=== PATIENT | female | born 1980 | race American Indian/Alaskan Native ===

== ENCOUNTER 2017-01-05 22:40 | Emergency (ER) | payer OTHER ==
[2017-01-05 22:40] VITALS: BMI 30.3
[2017-01-05 23:32] LABS: RBC URINE 1 /hpf (0-3); URINE BACTERIA RARE (<OCC); URINE BILIRUBIN NEGATIVE (NEGATIVE); URINE BLOOD NEGATIVE (NEGATIVE); URINE COLOR Straw (YELLOW); URINE GLUCOSE (UA) NORMAL (Normal); URINE KETONE NEGATIVE (NEGATIVE); URINE LEUKOCYTE ESTERASE NEG Leu/uL (Negative); URINE PROTEIN NEGATIVE (NEGATIVE); URINE UROBILINOGEN NORMAL mg/dL (0.2-1.0); WBC URINE 2 /hpf (0-5)
[2017-01-05] MEDS ORDERED: Sodium Chloride 0.9% 1,000 ML IV ONE (23:35)
[2017-01-06 00:09] LABS: VENOUS BLOOD GAS BASE EXCESS 1.5 mmol/L (0.0-2.0); VENOUS BLOOD GAS PCO2 49 mmHg (40-60); VENOUS BLOOD PH 7.36 (7.32-7.43)
[2017-01-06 00:34] LABS: BASO % 0.3 % (0.0-2.0); EOS % 0.2 % (0.0-4.0); HEMATOCRIT 36.7 % (34.0-47.0); LYMPH # 0.5 K/uL (1.0-4.3); LYMPH % 5.3 % (20.0-40.0); MEAN CELL VOLUME 81.5 fL (81.0-99.0); MEAN CORPUSCULAR HEMOGLOBIN 25.1 pg (27.0-31.0); MEAN CORPUSCULAR HGB CONC 30.8 g/dL (33.0-37.0); MEAN PLATELET VOLUME 8.3 fL (7.2-11.7); MONO # 0.3 K/uL (0.0-0.8); MONO % 3.1 % (0.0-10.0); PLATELET COUNT 354 K/uL (130-400); RED CELL DISTRIBUTION WIDTH 14.2 % (11.5-14.5); WHITE BLOOD COUNT 9.1 K/uL (4.8-10.8)
[2017-01-06 00:47] LABS: ALB/GLOB RATIO 1.2 (1.0-2.1); ALKALINE PHOSPHATASE 71 U/L (38-126); ALT/SGPT 23 U/L (9-52); AST/SGOT 25 U/L (14-36); BILIRUBIN,TOTAL 0.5 mg/dL (0.2-1.3); BLOOD UREA NITROGEN 13 mg/dL (7-17); CALCIUM 9.1 mg/dl (8.6-10.4); CARBON DIOXIDE 24 mmol/L (22-30); CHLORIDE 101 mmol/L (98-107); GFR AFRICAN-AMERICAN > 60; GLUCOSE,RANDOM 94 mg/dL (65-105); POTASSIUM 3.9 mmol/L (3.6-5.2); SODIUM 137 mmol/L (132-148); TOTAL PROTEIN 7.1 g/dL (6.3-8.3)
--- NOTE | 2017-01-06 01:06 | C.PDOC ---
History Of Present Illness <Sachi Bentley - Last Filed: 01/06/17 01:05> <Neema Zelaya - Last Filed: 01/09/17 04:30> 36 year old female presents to the ED with complaints of sudden onset of chills and tightness to the sternal/ epigastric region of her chest. Patient is an employee at [employer] and notes pain began at about 10pm tonight. She also janet mild myalgia but denies nausea, vomiting, headache, neck stiffness, cough, or shortness of breath. (Neema Zelaya) <Sachi Bentley - Last Filed: 01/06/17 01:05> History Per: Patient History/Exam Limitations: no limitations Onset/Duration Of Symptoms: Hrs Current Symptoms Are (Timing): Still Present Location Of Pain/Discomfort: Epigastric (epigastric/sternal area of chest ) Radiation Of Pain To:: None Quality Of Discomfort: Other (tightness ) Associated Symptoms: Chills. denies: Fever, Nausea, Vomiting, Diarrhea Recent travel outside of the [place]: No Abnormal Vaginal Bleeding: No <Neema Zelaya - Last Filed: 01/09/17 04:30> Time Seen by Provider: 01/05/17 23:30 Chief Complaint (Nursing): Fever Past Medical History - Medical History PMH: Denies: Chronic Kidney Disease - Social History Hx Tobacco Use: No Hx Alcohol Use: No Hx Substance Use: No - Immunization History Hx Tetanus Toxoid Vaccination: No Hx Influenza Vaccination: No Hx Pneumococcal Vaccination: No <Sachi Bentley - Last Filed: 01/06/17 01:05> Reviewed: Historical Data, Nursing Documentation, Vital Signs Family History: States: Unknown Family Hx <Neema Zelaya - Last Filed: 01/09/17 04:30> Vital Signs: Last Vital Signs Temp 98.9 F 01/06/17 01:21 Pulse 108 H 01/06/17 01:21 Resp 18 01/06/17 01:21 BP 111/71 01/06/17 01:21 Pulse Ox 99 01/06/17 01:21 Review Of Systems Constitutional: Positive for: Fever, Chills, Other (mild myalgia ) Cardiovascular: Negative for: Chest Pain, Palpitations Respiratory: Negative for: Cough, Shortness of Breath Gastrointestinal: Negative for: Nausea, Vomiting, Abdominal Pain, Diarrhea Neurological: Negative for: Headache, Dizziness <Neema Zelaya - Last Filed: 01/09/17 04:30> Physical Exam - Physical Exam Appears: Well, Non-toxic, No Acute Distress Skin: Warm, Dry Head: Atraumatic Eye(s): bilateral: Normal Inspection, PERRL, EOMI Ear(s): Bilateral: Normal Oral Mucosa: Moist Throat: Normal, No Erythema, No Exudate Neck: No Midline Cervical Tenderness, No Paracervical Tenderness, Supple Chest: Symmetrical, No Deformity, Tenderness (mild distal sternal reproducible tenderness ) Cardiovascular: Other (patient is tachycardic ) Respiratory: Normal Breath Sounds, No Rales, No Rhonchi, No Wheezing Gastrointestinal/Abdominal: Soft, No Tenderness, No Distention, No Guarding, No Rebound Neurological/Psych: Oriented x3, Normal Speech, Normal Cognition <Neema Zelaya - Last Filed: 01/09/17 04:30> ED Course And Treatment - Laboratory Results Result Diagrams: 01/06/17 00:21 01/06/17 00:21 O2 Sat by Pulse Oximetry: 98 <Sachi Bentley - Last Filed: 01/06/17 01:05> - Laboratory Results Result Diagrams: 01/06/17 00:21 01/06/17 00:21 Urine POC: Negative ECG: Interpreted By Me ECG Rhythm: Sinus Tachycardia Rate From EC Pulse Ox Interpretation: Normal - Radiology CXR: Interpreted by Me, Viewed By Me CXR Interpretation: Yes: No Acute Disease. No: Infiltrates Progress Note: CXR and labs were ordered. Patient was given Motrin and IV fluids. <Neema Zelaya - Last Filed: 01/09/17 04:30> Medical Decision Making <Sachi Bentley - Last Filed: 01/06/17 01:05> <Neema Zelaya - Last Filed: 01/09/17 04:30> Medical Decision Making: pt appears well, with only mild 'soreness' to distal sternal area. abdomen non tender. will d/c home with pmd f/u tomorrow. (Neema Zelaya) Disposition <Sachi Bentley - Last Filed: 01/06/17 01:05> Counseled Patient/Family Regarding: Diagnosis, Need For Followup - Disposition Disposition Time: 01:54 <Neema Zelaya - Last Filed: 01/09/17 04:30> - Disposition Referrals: Romy Nguyen MD [Staff Provider] - Disposition: HOME/ ROUTINE Condition: STABLE Additional Instructions: Follow up with Dr Nguyen today/ Stay well hydrated. Tylenol or Motrin for pain. Return to ER for any worsening symptoms. Forms: General Discharge Instructions, [facility] (G[place]ian), Work Excuse - Clinical Impression Clinical Impression: Fever, Influenza-like illness <Sachi Bentley - Last Filed: 01/06/17 01:05> - Scribe Statement The provider has reviewed the documentation as recorded by the Scribe <Neema Zelaya - Last Filed: 01/09/17 04:30> - Scribe Statement Peyton Nieto All medical record entries made by the Scribe were at my direction and personally dictated by me. I have reviewed the chart and agree that the record accurately reflects my personal performance of the history, physical exam, medical decision making, and the department course for this patient. I have also personally directed, reviewed, and agree with the discharge instructions and disposition. (Neema Zelaya)
[2017-01-06 01:22] VITALS: BP 111/71; PULSE 108; RESP 18; TEMP 98.9; O2SAT 99
[2017-01-06 02:49] LABS: NEUTROPHIL 90 % (50-75); TOTAL CELLS COUNTED 100
--- NOTE | 2017-01-06 09:33 | RAD ---
HISTORY: fever cp COMPARISON: Comparison chest dated 12/20/2015 TECHNIQUE: Chest PA and lateral FINDINGS: LUNGS: No active pulmonary disease. PLEURA: No significant pleural effusion identified. No pneumothorax apparent. CARDIOVASCULAR: Normal. OSSEOUS STRUCTURES: No significant abnormalities. VISUALIZED UPPER ABDOMEN: Normal. OTHER FINDINGS: None. IMPRESSION: No active disease.
--- NOTE | 2017-01-07 18:36 | CARD ---
APPROVED REPORT EKG Measurement Heart [id number] <Conclusion> Sinus tachycardia Low voltage QRS Borderline ECG
== END 2017-01-06 02:00 | disposition home or self-care (01) ==
LOC: C.ER 22:40
DX: J11.1 Influenza due to unidentified influenza virus with other respiratory manifestations (principal); R50.9 Fever, unspecified
CPT/HCPCS: 71020; 80053; 81001; 82803; 83690; 85025; 87040; 87804; 93005; 96360; 99285; J7040

== ENCOUNTER 2017-08-26 09:12 | Day surgery (SDC) | payer OTHER ==
[2017-08-26 11:08] VITALS: BMI 27.1
--- NOTE | 2017-08-26 11:28 | CP.SDSHP ---
Same Day Surgery H & P - History Proposed Procedure: US guided FNA of left thyroid nodule Pre-Op Diagnosis: left thyroid nodule - Allergies Allergies: Allergies No Known Allergies Allergy (Verified 01/05/17 23:07) - Physical Exam Mental Status: Alert & Oriented x3 - Impression Impression: Pt with a 1.4 cm left thyroid nodule. Plan US guided FNA. Pt. Evaluated Today:Candidate for Anesthesia & Procedure: No - Date & Time Date: 08/26/17 Time: 11:10 Short Stay Discharge - Short Stay Discharge Admitting Diagnosis/Reason for Visit: NONTOXIC SINGLE THYROID NODULE
--- NOTE | 2017-08-26 11:31 | PCM.SURG1 ---
Surgeon's Initial Post Op Note - Surgeon's Notes Surgeon: Woo Leone MD Ball Shagger: NONE Type of Anesthesia: Local Pre-Operative Diagnosis: Thyroid nodule Operative Findings: US showed a 1.4 cm left thyroid nodule Post-Operative Diagnosis: Thyroid nodule Operation Performed: US guided FNA Specimen/Specimens Removed: 25 g FNA x 4 nodule Estimated Blood Loss: EBL {In ML}: 1 Blood Products Given: N/A Drains Used: No Drains Post-Op Condition: Fair Date of Surgery/Procedure: 08/26/17 Time of Surgery/Procedure: 11:25
--- NOTE | 2017-08-26 12:25 | US ---
PROCEDURE: Date of Procedure: 08/26/2017 PROCEDURE: 1. Ultrasound guided FNA of left thyroid nodule, CPT 90408 2. Ultrasound guidance for FNA, 62179 Medications: 3cc 1% Lidocaine HISTORY: Enlarged left thyroid nodule. TECHNIQUE: Following informed consent and procedure time-out, a limited ultrasound patient's neck confirmed the presence of a 1.4 cm complex left thyroid nodule which is predominantly solid. After the patient's neck was prepped and draped in the usual sterile fashion, the skin was anesthetized with 1% lidocaine. Ultrasound-guided fine needle aspiration was then performed of the dominant left thyroid nodule. A total of 5 passes were made into the nodule with 25 gauge needle under ultrasound guidance. The FNA specimen was sent for routine pathology. Post biopsy ultrasound showed no hematoma. IMPRESSION: Ultrasound-guided FNA of the dominant left thyroid nodule.
== END 2017-08-26 12:00 | disposition home or self-care (01) ==
LOC: C.SPRAD 09:12
PROVIDERS: ATTEND Radiology Vascular & Interventional Radiology
DX: E04.1 Nontoxic single thyroid nodule (principal)

== ENCOUNTER 2017-09-11 08:48 | Day surgery (SDC) | payer OTHER ==
[2017-09-11 08:58] VITALS: BMI 30.5
[2017-09-11 09:16] VITALS: O2SAT 100
[2017-09-11] MEDS ORDERED: Propofol 10 mg/ml Inj (20 ML) ONE (11:42)
[2017-09-11] MEDS ORDERED: Albuterol HFA 90 mcg/actuation (8 g) ONE (12:47)
[2017-09-11 13:10] VITALS: BP 120/60; PULSE 78; RESP 15; TEMP 98.4
== END 2017-09-11 13:05 | disposition home or self-care (01) ==
LOC: C.ENDO 08:48
PROVIDERS: ATTEND Internal Medicine Gastroenterology
DX: D50.9 Iron deficiency anemia, unspecified (principal); R10.13 Epigastric pain; K29.70 Gastritis, unspecified, without bleeding
CPT/HCPCS: 43239; 84703; 88305; J2001; J2704